=== PATIENT | female | born 2000 | race Two or more races ===

== ENCOUNTER 2024-01-15 00:22 | Emergency (ER) | payer OTHER ==
[~2024-01-15] VITALS: Ht 152.4 cm; Wt 56.7 kg
[2024-01-15] MEDS ORDERED: ONDANSETRON 4 MG TAB.RAPDIS ONE (01:39)
[2024-01-15] MEDS ORDERED: ACETAMINOPHEN ES 500 MG TABLET ONE (01:39)
[2024-01-15] MEDS: ACETAMINOPHEN ES 500 MG TABLET PO ONE (01:45)
[2024-01-15] MEDS: ONDANSETRON 4 MG TAB.RAPDIS SL ONE (01:45)
[2024-01-15 02:05] LABS: APPEARANCE,URINE CLEAR (CLEAR); BILIRUBIN,URINE NEGATIVE (NEGATIVE); BLOOD, URINE 1+ Ery/uL (NEGATIVE); COLOR,URINE YELLOW (YELLOW); KETONES,URINE NEGATIVE (NEGATIVE); LEUKOCYTE ESTERASE ,URINE NEGATIVE (NEGATIVE); NITRITE, URINE NEGATIVE (NEGATIVE); PROTEIN,URINE NEGATIVE (NEGATIVE); UGLUCOSE NEGATIVE (NEGATIVE); UROBILINOGEN,URINE 0.2 EU/dL (0.2)
[2024-01-15 02:09] LABS: PREGNANCY TEST URINE QUAL NEGATIVE (NEGATIVE)
[2024-01-15 02:17] LABS: ADD URINE CULTURE YES; BACTERIA,URINE Moderate /HPF (None Seen); WBC,URINE 0-2 /HPF (0-3)
[2024-01-15] MEDS ORDERED: ACET-2605 PO (02:51)
[2024-01-15] MEDS ORDERED: ONDA4TAB11 PO (02:51)
[2024-01-15] MEDS ORDERED: IBUP-1490 PO (02:51)
[2024-01-15] MEDS ORDERED: IBUPROFEN 600 MG TABLET ONE (02:59)
[2024-01-15] MEDS: IBUPROFEN 600 MG TABLET PO ONE (03:07)
[2024-01-15 03:11] VITALS: BP 117/70; TEMP 100.1; O2SAT 98
== END 2024-01-15 03:12 | disposition home or self-care (01) ==
LOC: ER 00:32
DX: B34.9 Viral infection, unspecified (principal); M79.10 Myalgia, unspecified site; R51.9 Headache, unspecified; R10.2 Pelvic and perineal pain; Z79.1 Long term (current) use of non-steroidal anti-inflammatories (NSAID); Z20.822 Contact with and (suspected) exposure to COVID-19; Z79.899 Other long term (current) drug therapy
CPT/HCPCS: 99284; 87426; 87086; 84703; 81001; Q0162